=== PATIENT | female | born 1995 | race Hispanic/Latino ===

== ENCOUNTER 2017-01-24 14:24 | Emergency (ER) | payer OTHER ==
[~2017-01-24] VITALS: Ht 157.5 cm; Wt 104.3 kg
[2017-01-24 14:26] VITALS: BP 111/58
[2017-01-24] MEDS ORDERED: MULT1TAB18 PO (14:32)
[2017-01-24] MEDS ORDERED: IBUPROFEN 600 MG TAB PO ONE (16:00)
[2017-01-24] MEDS ORDERED: IBUP-1022 PO (16:01)
--- NOTE | 2017-01-25 08:17 | REP ---
Clinical: Pain. Technique: AP, lateral, bilateral oblique views right first digit. Findings: The osseous structures and joint spaces are intact and normal. There is no evidence for acute fracture or dislocation. Surrounding soft tissues are unremarkable. No subcutaneous emphysema or radiodense foreign body. Impression: No acute fracture or dislocation. Signed by Rolly Nicholson MD 01/24/2017 03:56 P
== END 2017-01-24 16:22 | disposition home or self-care (01) ==
LOC: M ED 14:24
DX: M79.645 Pain in left finger(s) (principal)